=== PATIENT | male | born 1980 | race Caucasian/White ===

== ENCOUNTER 2016-07-02 15:15 | Emergency (ER) | payer OTHER ==
[~2016-07-02] VITALS: Wt 68.0 kg
== END 2016-07-02 18:50 | disposition other institution (70) ==
LOC: ED 15:15
DX: S42.291A Other displaced fracture of upper end of right humerus, initial encounter for closed fracture (principal); V89.2XXA Person injured in unspecified motor-vehicle accident, traffic, initial encounter; Y93.89 Activity, other specified; Y92.413 State road as the place of occurrence of the external cause; Y99.9 Unspecified external cause status